=== PATIENT | female | born 2005 | race Hispanic/Latino ===

== ENCOUNTER 2023-03-11 17:12 | Emergency (ER) | payer OTHER ==
[~2023-03-11] VITALS: Ht 152.4 cm; Wt 72.1 kg
[2023-03-11] MEDS ORDERED: ACETAMINOPHEN 500 MG TABLET ONE (17:29)
[2023-03-11] MEDS ORDERED: IBUPROFEN 600 MG TABLET ONE (17:29)
[2023-03-11 17:34] LABS: APPEARANCE,URINE CLEAR (CLEAR); BILIRUBIN,URINE NEGATIVE (NEGATIVE); COLOR,URINE YELLOW (YELLOW); GLUCOSE, URINE (UA) NEGATIVE (NEGATIVE); KETONES,URINE 10 mg/dL (NEGATIVE); LEUKOCYTE ESTERASE ,URINE 75 Leu/uL (NEGATIVE); NITRATE,URINE NEGATIVE (NEGATIVE); OCCULT BLOOD,URINE MODERATE (NEGATIVE); PROTEIN,URINE 50 mg/dL (NEGATIVE)
[2023-03-11 17:35] LABS: ADD UA MICROSCOPIC YES
[2023-03-11 17:36] LABS: HCG,QUALITATIVE URINE NEGATIVE (NEGATIVE)
[2023-03-11 17:38] LABS: BACTERIA,URINE RARE /HPF (None Seen); MUCUS,URINE FEW LPF (None Seen); SQUAMOUS EPITHELIAL CELL,UR RARE /HPF (0-2)
[2023-03-11 18:00] LABS: RAPID GROUP A STREP negative (NEGATIVE)
[2023-03-11] MEDS ORDERED: IBUPROFEN 600 MG TABLET PO ONE (18:00)
[2023-03-11] MEDS ORDERED: ACETAMINOPHEN 500 MG TABLET PO ONE (18:00)
[2023-03-11 18:07] LABS: SARS-CoV-2, RNA, NAAT NEGATIVE SARS CoV-2 (NEGATIVE)
[2023-03-11 18:12] LABS: INFLUENZA TYPE A Negative For Type A (NEGATIVE); INFLUENZA TYPE B Negative For Type B (NEGATIVE)
[2023-03-11] MEDS ORDERED: 0.9%NACL 1000ML 1,000 ML IV SCH (18:30)
[2023-03-11 18:38] VITALS: TEMP 103
[2023-03-11 18:45] LABS: BASOPHILS # (AUTO) 0.03 K/uL (0.00-0.20); BASOPHILS % (AUTO) 0.7 % (0.0-5.0); HEMATOCRIT 38.8 % (36-48); IMMATURE GRANULOCYTE ABSOLUTE 0.02 K/uL (0-1); LYMPHOCYTES # (AUTO) 1.2 K/uL (1.0-4.8); MEAN CORPUSCULAR HEMOGLOBIN 28.2 pg (27.0-33.0); MEAN CORPUSCULAR HGB CONC 35.6 g/dL (32.0-36.0); MEAN CORPUSCULAR VOLUME 79.2 fL (80-100); MONOCYTES # (AUTO) 0.2 K/uL (0.1-1.0); MONOCYTES % (AUTO) 5.2 % (3.0-13.0); NEUTROPHILS # (AUTO) 2.8 K/uL (1.8-7.7); NEUTROPHILS % (AUTO) 65.6 % (40.0-77.0); PLATELET COUNT (AUTO) 201 K/uL (130-400); RED CELL DISTRIBUTION WIDTH 12.5 % (11.0-15.5); WHITE BLOOD COUNT (AUTO) 4.2 K/uL (4.8-10.8)
[2023-03-11 18:57] LABS: CREATININE 0.8 mg/dL (0.5-1.5); POTASSIUM 3.9 mmol/L (3.5-5.1)
[2023-03-11 19:02] LABS: ALBUMIN 3.4 g/dL (3.5-5.0); BILIRUBIN,TOTAL 0.5 mg/dL (0.2-1.0); TOTAL PROTEIN, SERUM 7.6 g/dL (6.0-8.3)
[2023-03-11] MEDS ORDERED: CEPH500B PO (19:18)
[2023-03-11] MEDS ORDERED: CEFTRIAXONE 1G VIAL IVPB ONE (19:30)
[2023-03-11 20:08] VITALS: BP 97/53; PULSE 87; RESP 18; O2SAT 97
== END 2023-03-11 20:37 | disposition home or self-care (01) ==
LOC: EDH 17:12
DX: B08.4 Enteroviral vesicular stomatitis with exanthem (principal); N39.0 Urinary tract infection, site not specified; B34.9 Viral infection, unspecified; Z20.822 Contact with and (suspected) exposure to COVID-19
CPT/HCPCS: 99284; 96365; 96361; 87635; 80053; 85025; 87040 ×2; 87088; 87880; 87804 ×2; 83605; 81001; 81025; 36415; C9803; J0696